=== PATIENT | male | born 1980 ===

== ENCOUNTER 2019-04-26 13:59 | Emergency (ER) | payer SELFPAY ==
[2019-04-26] MEDS ORDERED: NACL 0.9% 1000 ML 1,000 ML IV ONE (14:07)
--- NOTE | 2019-04-26 14:07 | Emergency Department Report ---
Blank Doc - Documentation Documentation: 38 y o male with Hx of DM on metformin 850 BID was sent here from clinic for ev aliuation after cc of arm tinging and numbness deniesn/v/abd pain/chest pain labs, ua ACC eval
[2019-04-26 14:54] LABS: Basophils % (Auto) 0.5 % (0.0-1.8); Eosinophils # (Auto) 0.1 K/mm3 (0.0-0.4); Eosinophils % (Auto) 1.8 % (0.0-4.3); Hemoglobin 15.2 gm/dl (11.8-15.2); Lymphocytes # (Auto) 1.5 K/mm3 (1.2-5.4); Lymphocytes % (Auto) 25.1 % (13.4-35.0); Mean Corpuscular HGB Conc 35 % (32-34); Mean Corpuscular Volume 88 fl (84-94); Monocytes # (Auto) 0.4 K/mm3 (0.0-0.8); Monocytes % (Auto) 6.7 % (0.0-7.3); Platelet Count 237 K/mm3 (140-440); Red Blood Count 5.02 M/mm3 (3.65-5.03); Red Cell Distribution Width 13.1 % (13.2-15.2)
[2019-04-26 15:07] LABS: Alanine Aminotransferase 23 units/L (7-56); Albumin 4.1 g/dL (3.9-5); BUN/Creatinine Ratio 28; Blood Urea Nitrogen 17 mg/dL (9-20); Calcium 9.8 mg/dL (8.4-10.2); Hemolysis Index 13
[2019-04-26 15:24] LABS: Bilirubin,Urine NEG (Negative); Blood,Urine NEG (Negative); Color,Urine Straw (Yellow); Protein,Urine <15 mg/dL mg/dL (Negative); Urobilinogen,Urine < 2.0 mg/dL (<2.0)
[2019-04-26] MEDS ORDERED: TYLENOL PO ONE (17:02)
[2019-04-26] MEDS ORDERED: HumuLIN R IV ONE (17:02)
--- NOTE | 2019-04-26 17:03 | Emergency Department Report ---
ED General Adult HPI - General Chief complaint: Hyperglycemia Stated complaint: GLUCOSE/WEAKNESS/HEADACHE Time Seen by Provider: 04/26/19 14:05 Source: patient, RN notes reviewed Mode of arrival: Ambulatory Limitations: No Limitations - History of Present Illness Initial comments: This is a pleasant 38-year-old gentleman, who was not known to this provider previously. The patient recently moved here from [place]. He takes metformin, 850 mg, twice daily, and reports a past medical history of diabetes. He reports his private physician is in [place]. He does not have a local primary care doctor. He presents to the emergency room with a complaint of hyperglycemia, sugars in the 400s, 500s, over the past day or so. His sugars typically run in the 190s. 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 His other complaints including bilateral hand cramping, bilateral arm numbness, starting from the elbow, going distally, and left leg numbness, starting from th e left knee, going distally. He also endorses nontraumatic right-sided head pressure, post auricular, occipital, which is not sudden or thunderclap in nature, not maximal intensity, and not described as pain. He denies tinnitus, vertigo, loss of vision, sore throat, chest pain, abdominal pain, shortness of breath, he denies extremity weakness, he currently does not have any sensory complaints, he denies fevers, denies skin rash, denies urinary symptoms, and denies other arthralgias except as mentioned. History symptoms do not radiate anywhere, did not appear to have exacerbating or relieving factors that he is aware of. -: Gradual Location: head, upper extremity, lower extremity Radiation: extremity Severity scale (0 -10): 0 Quality: other Consistency: other Improves with: other Worsens with: other - Related Data Previous Rx's Medication Instructions Recorded Last Taken Type Acetaminophen [Non-Aspirin Extra 500 mg PO Q6HR PRN #30 tablet 04/26/19 Unknown Rx Strength] Fluticasone [Flonase] 1 spray NS QDAY #1 bottle 04/26/19 Unknown Rx Ibuprofen [Motrin] 600 mg PO Q8H PRN #30 tablet 04/26/19 Unknown Rx Allergies Allergy/AdvReac Type Severity Reaction Status Date / Time No Known Allergies Allergy Verified 04/26/19 14:02 ED Review of Systems ROS: Stated complaint: GLUCOSE/WEAKNESS/HEADACHE Other details as noted in HPI Constitutional: denies: fever Eyes: denies: eye discharge ENT: denies: throat pain, congestion Respiratory: denies: cough Cardiovascular: denies: chest pain Gastrointestinal: denies: abdominal pain Genitourinary: denies: urgency, dysuria, frequency Musculoskeletal: arthralgia, myalgia Skin: denies: lesions Neurological: paresthesias. denies: weakness, abnormal gait, vertigo Hematological/Lymphatic: denies: easy bleeding ED Past Medical Hx - Past Medical History Previous Medical History?: Yes Hx Diabetes: Yes - Surgical History Past Surgical History?: No - Social History Smoking Status: Never Smoker - Medications Home Medications: Home Medications Medication Instructions Recorded Confirmed Last Taken Type Acetaminophen [Non-Aspirin Extra 500 mg PO Q6HR PRN #30 tablet 04/26/19 Unknown Rx Strength] Fluticasone [Flonase] 1 spray NS QDAY #1 bottle 04/26/19 Unknown Rx Ibuprofen [Motrin] 600 mg PO Q8H PRN #30 tablet 04/26/19 Unknown Rx ED Physical Exam - General Limitations: No Limitations General appearance: alert, in no apparent distress - Head Head exam: Present: atraumatic, normocephalic - Eye Eye exam: Present: normal appearance, PERRL, EOMI, other (visual acuity intact to finger counting, color perception, reading at a close distance). Absent: nystagmus - ENT ENT exam: Present: normal exam, normal orophraynx, mucous membranes moist, normal external ear exam - Neck Neck exam: Present: normal inspection, full ROM. Absent: tenderness, meni ngismus - Respiratory Respiratory exam: Present: normal lung sounds bilaterally. Absent: respiratory distress, wheezes, rales, rhonchi, stridor, chest wall tenderness - Cardiovascular Cardiovascular Exam: Present: regular rate, normal rhythm, normal heart sounds. Absent: bradycardia, tachycardia, irregular rhythm, systolic murmur, diastolic murmur, rubs, gallop - GI/Abdominal GI/Abdominal exam: Present: soft. Absent: distended, tenderness, guarding, rebound, rigid, pulsatile mass - Rectal Rectal exam: Present: deferred - Extremities Exam Extremities exam: Present: normal inspection, full ROM, other (2+ pulses noted in the bilateral upper, lower extremities. Compartments soft. No long bony te nderness. The pelvis is stable.). Absent: pedal edema, calf tenderness - Back Exam Back exam: Present: normal inspection, full ROM. Absent: tenderness, CVA te nderness (R), CVA tenderness (L), paraspinal tenderness, vertebral tenderness - Neurological Exam Neurological exam: Present: alert, oriented X3, normal gait (there is no pronator drift. There is normal [id number].), other (Extraocular movements intact. Tongue midline. No facial droop. Facial sensation intact to light touch in the V1, V2, V3 distribution bilaterally. 5 and 5 strength in 4 extremities.. Sensation is intact to light touch in 4 extremities.). Absent: motor sensory deficit - Psychiatric Psychiatric exam: Present: normal affect, normal mood - Skin Skin exam: Present: warm, dry, intact, normal color. Absent: rash ED Course Vital Signs 04/26/19 04/26/19 04/26/19 14:05 16:54 18:28 Temperature 98.3 F 97.9 F Pulse Rate 93 H 77 89 Respiratory 18 18 18 Rate Blood Pressure 139/98 Blood Pressure 144/96 133/87 [Right] O2 Sat by Pulse 99 100 96 Oximetry ED Medical Decision Making - Lab Data Result diagrams: 04/26/19 14:28 04/26/19 14:28 Vital Signs 04/26/19 04/26/19 14:05 16:54 Temperature 98.3 F 97.9 F Pulse Rate 93 H 77 Respiratory 18 18 Rate Blood Pressure 139/98 Blood Pressure 144/96 [Right] O2 Sat by Pulse 99 100 Oximetry Lab Results 04/26/19 04/26/19 04/26/19 Range/Units 14:10 14:28 14:28 WBC 6.1 (4.5-11.0) K/mm3 RBC 5.02 (3.65-5.03) M/mm3 Hgb 15.2 (11.8-15.2) gm/dl Hct 44.0 (35.5-45.6) % MCV 88 (84-94) fl MCH 30 (28-32) pg MCHC 35 H (32-34) % RDW 13.1 L (13.2-15.2) % Plt Count 237 (140-440) K/mm3 Lymph % (Auto) 25.1 (13.4-35.0) % Riley % (Auto) 6.7 (0.0-7.3) % Eos % (Auto) 1.8 (0.0-4.3) % Baso % (Auto) 0.5 (0.0-1.8) % Lymph # 1.5 (1.2-5.4) K/mm3 Riley # 0.4 (0.0-0.8) K/mm3 Eos # 0.1 (0.0-0.4) K/mm3 Baso # 0.0 (0.0-0.1) K/mm3 Seg Neutrophils % 65.9 (40.0-70.0) % Seg Neutrophils # 4.0 (1.8-7.7) K/mm3 VBG pH (7.320-7.420) Sodium 135 L (137-145) mmol/L Potassium 4.1 (3.6-5.0) mmol/L Chloride 99.6 (98-107) mmol/L Carbon Dioxide 22 (22-30) mmol/L Anion Gap 18 mmol/L BUN 17 (9-20) mg/dL Creatinine 0.6 L (0.8-1.5) mg/dL Estimated GFR > 60 ml/min BUN/Creatinine Ratio 28 % Glucose 426 H (75-100) mg/dL POC Glucose 381 H (70-105) Calcium 9.8 (8.4-10.2) mg/dL Total Bilirubin 0.20 (0.1-1.2) mg/dL AST 13 (5-40) units/L ALT 23 (7-56) units/L Alkaline Phosphatase 123 (35-129) units/L Total Protein 6.9 (6.3-8.2) g/dL Albumin 4.1 (3.9-5) g/dL Albumin/Globulin Ratio 1.5 % Urine Color (Yellow) Urine Turbidity (Clear) Urine pH (5.0-7.0) Ur Specific Trimble (1.003-1.030) Urine Protein (Negative) mg/dL Urine Glucose (UA) (Negative) mg/dL Urine Ketones (Negative) mg/dL Urine Blood (Negative) Urine Nitrite (Negative) Urine Bilirubin (Negative) Urine Urobilinogen (<2.0) mg/dL Ur Leukocyte Esterase (Negative) Urine WBC (Auto) (0.0-6.0) /HPF Urine RBC (Auto) (0.0-6.0) /HPF 04/26/19 04/26/19 04/26/19 Range/Units 14:28 14:57 16:52 WBC (4.5-11.0) K/mm3 RBC (3.65-5.03) M/mm3 Hgb (11.8-15.2) gm/dl Hct (35.5-45.6) % MCV (84-94) fl MCH (28-32) pg MCHC (32-34) % RDW (13.2-15.2) % Plt Count (140-440) K/mm3 Lymph % (Auto) (13.4-35.0) % Riley % (Auto) (0.0-7.3) % Eos % (Auto) (0.0-4.3) % Baso % (Auto) (0.0-1.8) % Lymph # (1.2-5.4) K/mm3 Riley # (0.0-0.8) K/mm3 Eos # (0.0-0.4) K/mm3 Baso # (0.0-0.1) K/mm3 Seg Neutrophils % (40.0-70.0) % Seg Neutrophils # (1.8-7.7) K/mm3 VBG pH 7.382 (7.320-7.420) Sodium (137-145) mmol/L Potassium (3.6-5.0) mmol/L Chloride (98-107) mmol/L Carbon Dioxide (22-30) mmol/L Anion Gap mmol/L BUN (9-20) mg/dL Creatinine (0.8-1.5) mg/dL Estimated GFR ml/min BUN/Creatinine Ratio % Glucose (75-100) mg/dL POC Glucose 349 H (70-105) Calcium (8.4-10.2) mg/dL Total Bilirubin (0.1-1.2) mg/dL AST (5-40) units/L ALT (7-56) units/L Alkaline Phosphatase (35-129) units/L Total Protein (6.3-8.2) g/dL Albumin (3.9-5) g/dL Albumin/Globulin Ratio % Urine Color Straw (Yellow) Urine Turbidity Clear (Clear) Urine pH 5.0 (5.0-7.0) Ur Specific Trimble 1.033 H (1.003-1.030) Urine Protein <15 mg/dl (Negative) mg/dL Urine Glucose (UA) >=500 (Negative) mg/dL Urine Ketones 20 (Negative) mg/dL Urine Blood Neg (Negative) Urine Nitrite Neg (Negative) Urine Bilirubin Neg (Negative) Urine Urobilinogen < 2.0 (<2.0) mg/dL Ur Leukocyte Esterase Neg (Negative) Urine WBC (Auto) 22.0 H (0.0-6.0) /HPF Urine RBC (Auto) 2.0 (0.0-6.0) /HPF 04/26/19 Range/Units 17:55 WBC (4.5-11.0) K/mm3 RBC (3.65-5.03) M/mm3 Hgb (11.8-15.2) gm/dl Hct (35.5-45.6) % MCV (84-94) fl MCH (28-32) pg MCHC (32-34) % RDW (13.2-15.2) % Plt Count (140-440) K/mm3 Lymph % (Auto) (13.4-35.0) % Riley % (Auto) (0.0-7.3) % Eos % (Auto) (0.0-4.3) % Baso % (Auto) (0.0-1.8) % Lymph # (1.2-5.4) K/mm3 Riley # (0.0-0.8) K/mm3 Eos # (0.0-0.4) K/mm3 Baso # (0.0-0.1) K/mm3 Seg Neutrophils % (40.0-70.0) % Seg Neutrophils # (1.8-7.7) K/mm3 VBG pH (7.320-7.420) Sodium (137-145) mmol/L Potassium (3.6-5.0) mmol/L Chloride (98-107) mmol/L Carbon Dioxide (22-30) mmol/L Anion Gap mmol/L BUN (9-20) mg/dL Creatinine (0.8-1.5) mg/dL Estimated GFR ml/min BUN/Creatinine Ratio % Glucose (75-100) mg/dL POC Glucose 225 H (70-105) Calcium (8.4-10.2) mg/dL Total Bilirubin (0.1-1.2) mg/dL AST (5-40) units/L ALT (7-56) units/L Alkaline Phosphatase (35-129) units/L Total Protein (6.3-8.2) g/dL Albumin (3.9-5) g/dL Albumin/Globulin Ratio % Urine Color (Yellow) Urine Turbidity (Clear) Urine pH (5.0-7.0) Ur Specific Trimble (1.003-1.030) Urine Protein (Negative) mg/dL Urine Glucose (UA) (Negative) mg/dL Urine Ketones (Negative) mg/dL Urine Blood (Negative) Urine Nitrite (Negative) Urine Bilirubin (Negative) Urine Urobilinogen (<2.0) mg/dL Ur Leukocyte Esterase (Negative) Urine WBC (Auto) (0.0-6.0) /HPF Urine RBC (Auto) (0.0-6.0) /HPF - Radiology Data Radiology results: image reviewed Print Report Referring Physician: ANGELIKA DUKES Patient Name: JEOVANNY HERNANDEZ Date of : 1980 Sex: Male Report Date: 2019-04-26 Report Status: [place] [address] Cat Scan Report Signed Patient: JEOVANNY HERNANDEZ JR MR#: [id number] : 1980 Acct:[id number] Age/Sex: 38 / M ADM Date: 04/26/19 Loc: ED Attending Dr: Ordering Physician: ANGELIKA DUKES MD Date of Service: 04/26/19 Procedure(s): CT head/brain wo con Accession Number(s): [id number] cc: ANGELIKA DUKES MD PROCEDURE: CT HEAD/BRAIN WO CON TECHNIQUE: Computerized tomography of the head was performed without contrast material. CT DOSE LENGTH PRODUCT: 920.5 mGycm HISTORY: right head pressure, b/l neuropathy COMPARISONS: None . FINDINGS: Complete opacification visible portion of right maxillary sinus. Slight mucosal thickening both ethmoid sinuses. Complete opacification anterior portion of right ethmoid sinus. Complete opacification right frontal sinus. Clear left frontal, ethmoid, and maxillary sinus. Clear mastoid air cells and middle ear cavities bilaterally. No acute air-fluid level visualized in the included air-filled sinuses. Bone windows demonstrate no acute fracture. There is ventricular and sulcal prominence compatible with age-appropriate slight early global cerebrocortical atrophy. The brain contains no mass, mass effect, hemorrhage, or acute infarct. There is no extra-axial intracranial bleed, brain bleed, or midline shift. IMPRESSION: No acute CVA, intracranial bleed, or brain mass Extensive paranasal sinus disease with right-sided predominance. No acute air- fluid level visualized but one could be obscured by complete opacity in some sinus This document is electronically signed by Rios Dietrich MD., April 26 2019 06:33:43 PM ET Transcribed By: BENITO Dictated By: RIOS DIETRICH MD Electronically Authenticated By: RIOS DIETRICH MD Signed Date/Time: 04/26/19 7119 - Medical Decision Making Differential diagnosis, including but not limited to: Hyperglycemia, nonspecific intermittent arthralgias, peripheral neuropathy, diabetic neuropathy, migraine headache, tension headache, cluster headache, dietary noncompliance Assessment and plan: 38-year-old gentleman, with multiple nonspecific complaints. He is afebrile, with reassuring vital signs, has a GCS of 15, with an NIH score of 0, does not appear to have any motor or sensory deficits at this time, sensation intact to light touch and pinch in the bilateral upper, lower extremities. His hyperglycemia is improved. He is resting currently in a stretcher, he does not appear to be in any acute distress. We discussed the importance of dietary compliance, and need for close outpatient follow-up. The patient does not appear to have an emergent medical condition at this time. He can follow up with an outpatient primary care doctor, either locally, or at his discretion/preference. Return precautions were reviewed. CT scan of the brain interpretation is reviewed and appreciated, suggests sinus disease. The patient appears quite comfortable, he is afebrile, and he does not have sinus tenderness. He will be started on supportive therapy, in my opinion, based off of the history and physical, does not require initiation of antibiotic therapy at this point in time, he will be started on nasal decongestants, NSAIDs, and referred to outpatient primary care and otolaryngology. Critical care attestation.: If time is entered above; I have spent that time in minutes in the direct care of this critically ill patient, excluding procedure time. ED Disposition Clinical Impression: Hyperglycemia, Sinus disease Disposition: TO HOME OR SELFCARE Is pt being admited?: No Does the pt Need Aspirin: No Condition: Stable Additional Instructions: Continue outpatient medications. Attempts to remain compliant with her diabetic appropriate diet, as we have discussed, and please make every attempt to perform meal preparation in advance of work obligations. Follow up with a [facility] doctor for hyperglycemia, elevated blood sugar within the next 3-4 weeks. Take the medications as needed/directed. CT scan of the brain showed sinus thickening, fluid in multiple sinuses, this is typically not dangerous or life-threatening, but should be followed up by either a primary care doctor or otolaryngology specialist within the next 2-3 weeks. Please return to the emergency room right away with it, worsens or different symptoms, or symptoms not present on the initial emergency room evaluation. Dr. Castellano is a local otolaryngology specialist. Referrals: JOANIE CUNNINGHAM MD [Primary Care Provider] - 3-[address] [facility] [Provider Group] - 3-5 Days MARK FATIMA MD [Staff Physician] - 3-5 Days
[2019-04-26] MEDS ORDERED: NACL 0.9% 1000 ML 1,000 ML ONE (17:10)
[2019-04-26 18:29] VITALS: BP 133/87
--- NOTE | 2019-04-26 18:35 | Cat Scan Report ---
PROCEDURE: CT HEAD/BRAIN WO CON TECHNIQUE: Computerized tomography of the head was performed without contrast material. CT DOSE LENGTH PRODUCT: 920.5 mGycm HISTORY: right head pressure, b/l neuropathy COMPARISONS: None . FINDINGS: Complete opacification visible portion of right maxillary sinus. Slight mucosal thickening both ethmoid sinuses. Complete opacification anterior portion of right ethm oid sinus. Complete opacification right frontal sinus. Clear left frontal, ethmoid, and maxillary sinus. Clear mastoid air cells and middle ear cavities bilaterally. No acute air-fluid level visualized in the included air-filled sinuses. Bone windows demonstrate no acute fracture. There is ventricular and sulcal prominence compatible with age-appropriate slight early global cerebr ocortical atrophy. The brain contains no mass, mass effect, hemorrhage, or acute infarct. There is no extra-axial intracranial bleed, brain bleed, or midline shift. IMPRESSION: No acute CVA, intracranial bleed, or brain mass Extensive paranasal sinus disease with right-sided predominance. No acute air-fluid level visualized but one could be obscured by complete opacity in some sinus This document is electronically signed by Rios Dietrich MD., April 26 2019 06:33:43 PM ET
== END 2019-04-27 01:21 | disposition home or self-care (01) ==
LOC: ED 13:59
DX: E11.65 Type 2 diabetes mellitus with hyperglycemia (principal)
CPT/HCPCS: 36415; 70450; 80053; 81001; 82805; 82962; 85025; 87086; 96361; 96374; 99284; J7030; J1815